=== PATIENT | male | born 1980 | race Caucasian/White ===

== ENCOUNTER 2018-05-18 19:25 | Observation (INO) | payer MEDICARE, OTHER ==
[2018-05-18] MEDS ORDERED: Naloxone 0.4 mg/ml Inj (Adult) ONE (19:36)
--- NOTE | 2018-05-18 19:50 | ED PDOC ---
Arrival/HPI - General Time Seen by Provider: 05/18/18 19:34 Historian: EMS, Police - History of Present Illness Narrative History of Present Illness (Text): 05/18/18 19:48 39 year old male, with unknown past medical history, presents to the Emergency Department via EMS accompanied by [employer] for possible substance overdose prior to arrival. As per EMS, patient was found on the street unconscious next to empty pipes by [employer] and was subsequently brought to the Emergency Department for evaluation. Upon arrival, patient is unconscious with pinpoint pupils. HPI and ROS limited secondary to patient's unconscious state. Time/Duration: Prior to Arrival Symptom Onset: Gradual Symptom Course: Unchanged Context: Street Past Medical History - Provider Review Nursing Documentation Reviewed: Yes Family/Social History - Physician Review Nursing Documentation Reviewed: Yes Family/Social History: No Known Family HX Allergies/Home Meds Allergies/Adverse Reactions: Allergies No Known Allergies Allergy (Verified 05/18/18 21:54) Review of Systems - Review of Systems Systems not reviewed;Unavailable: Acuity of Condition (Unconscious) Psychiatric: Other (drug overdose) Physical Exam Mental Status: Positive for: other (Unconscious) - Systems Exam Head: Present: Atraumatic, Normocephalic Pupils: Present: Pinpoint Extroacular Muscles: Present: EOMI Conjunctiva: Present: Normal Mouth: Present: Moist Mucous Membranes Respiratory/Chest: Present: Clear to Auscultation, Good Air Exchange. No: Respiratory Distress, Accessory Muscle Use Cardiovascular: Present: Regular Rate and Rhythm, Normal S1, S2. No: Murmurs Abdomen: No: Tenderness, Distention, Peritoneal Signs Back: Present: Normal Inspection Upper Extremity: Present: Normal Inspection. No: Cyanosis, Edema Lower Extremity: Present: Normal Inspection. No: Edema Neurological: Present: Other (Unconscious ) Skin: Present: Warm, Dry, Normal Color. No: Rashes Medical Decision Making ED Course and Treatment: 05/18/18 19:45 Impression: 39 year old male presents to the Emergency Department for medical evaluation of unconscious state. Differential Diagnosis included but are not limited to: Substance overdose Plan: -- Reassess and disposition Prior Visits: Notes and results from previous visits were reviewed. case arroyo for icu seen and examined pt stable for telemetry Progress Notes: 05/19/18 03:52 - EKG Interpretation EKG Interpretation (Text): 05/19/18 03:51 sinus bradycardia rate [address] s changes - Scribe Statement The provider has reviewed the documentation as recorded by the Scribe Dolly Bhatt. All medical record entries made by the Scribe were at my direction and personally dictated by me. I have reviewed the chart and agree that the record accurately reflects my personal performance of the history, physical exam, medical decision making, and the department course for this patient. I have also personally directed, reviewed, and agree with the discharge instructions and disposition. Disposition/Present on Arrival - Present on Arrival Any Indicators Present on Arrival: No - Disposition Have Diagnosis and Disposition been Completed?: Yes Diagnosis: Polysubstance abuse Disposition: HOSPITALIZED Disposition Time: 22:00 Condition: FAIR
[2018-05-18 19:52] VITALS: BMI 25.0
[2018-05-18 20:22] LABS: ACETAMINOPHEN < 10.0 ug/ml (10.0-20.0); SALICYLATE < 1 mg/dL (2.0-20.0)
[2018-05-18] MEDS ORDERED: Naloxone 0.4 mg/ml Inj (Adult) IVP STA (20:23)
[2018-05-18 20:30] LABS: URINE APPEARANCE CLEAR (CLEAR); URINE BILIRUBIN NEGATIVE (NEGATIVE); URINE BLOOD NEGATIVE (NEGATIVE); URINE COLOR YELLOW (YELLOW); URINE GLUCOSE (UA) 250 mg/dL (NEGATIVE); URINE LEUKOCYTE ESTERASE NEGATIVE Leu/uL (NEGATIVE); URINE PROTEIN NEGATIVE mg/dL (<30 mg/dL); URINE UROBILINOGEN 0.2 E.U./dL (<1 E.U./dL)
[2018-05-18 20:31] LABS: ALB/GLOB RATIO 1.4 (1.1-1.8); ALBUMIN 4.6 g/dL (3.0-4.8); ALT/SGPT 86 U/L (7-56); AST/SGOT 68 U/L (17-59); CALCIUM 9.9 mg/dL (8.4-10.5); GFR NON-AFRICAN AMERICAN > 60
[2018-05-18 20:32] LABS: BLOOD UREA NITROGEN 11 mg/dL (7-21)
[2018-05-18 20:33] LABS: BARBITURATES, UR NEGATIVE (NEGATIVE); BENZODIAZEPINES, UR NEGATIVE (NEGATIVE); OPIATES, UR POSITIVE (NEGATIVE); PHENCYCLIDINE, UR NEGATIVE (NEGATIVE)
[2018-05-18] MEDS ORDERED: Dextrose 50% SYRINGE Inj (50 ml) ONE (20:33)
[2018-05-18] MEDS ORDERED: Dextrose 50% SYRINGE Inj (50 ml) IVP STA ×3 (20:34→23:20)
[2018-05-18 20:58] LABS: BASO # 0.19 K/mm3 (0.0-2.0); BASO % 1.2 % (0.0-3.0); EOS # 0.6 (0.0-0.7); EOS % 3.9 % (1.5-5.0); GRAN # 10.07 (1.4-6.5); GRAN % 63.8 % (50.0-68.0); HEMOGLOBIN 13.4 g/dL (14.0-18.0); LYMPH # 3.6 (1.2-3.4); LYMPH % 22.6 % (22.0-35.0); MEAN CELL VOLUME 82.1 fl (80.0-105.0); MEAN CORPUSCULAR HEMOGLOBIN 28.6 pg (25.0-35.0); MEAN CORPUSCULAR HGB CONC 34.8 g/dl (31.0-37.0); MEAN PLATELET VOLUME 11.6 fl (7.0-11.0); MONO # 1.3 (0.1-0.6); MONO % 8.5 % (1.0-6.0); RBC 4.69 10^6/uL (3.5-6.1); RED CELL DISTRIBUTION WIDTH 13.6 % (11.5-14.5); WHITE BLOOD COUNT 15.8 10^3/ul (4.5-11.0)
[2018-05-18] MEDS ORDERED: Dextrose 5%/0.45% NS 1,000 ML IV SCH (21:30)
[2018-05-18] MEDS ORDERED: Potassium Chloride 10 mEq ER Tab PO STA (22:12)
[2018-05-19] MEDS ORDERED: Dextrose 5%/0.45% NS 1,000 ML IV SCH (00:41)
[2018-05-19] MEDS ORDERED: Multivitamin Therapeutic Tab PO STA (00:41)
[2018-05-19 01:20] LABS: CK MB% 2.4 % (2.5-3.0); CK-MB 14.1 ng/mL (0.0-3.6)
--- NOTE | 2018-05-19 01:39 | CP.PCM.HP ---
<Alexi Noel - Last Filed: 05/19/18 01:36> History of Present Illness - History of Present Illness History of Present Illness: Matt Noel PGY 2 - ICU Consult Note/H&P for Hospitalist Service Patient initially Isaias Mooney [id number] on presentation - Actual name: Jefferson Parr ( , : 1980) CC: Polysubstance abuse, hypoglycemia HPI: 38 year old male with past medical history of uncontrolled IDDM1, hx of previous DKA episode in 2017, HTN, polysubstance abuse who presented to [facility] ED via EMS with [employer] after being found by EMS unresponsive and unconscious next to empty crack pipes by [employer]. Patient was brought immediately to [facility] ED without intervention. In ED patient received narcan 0.8mg and amps of D50 for hypoglycemia. Patient initial presentation of altered mental status resolved and was able to communicate and particiapte in interview. Patient indicates he had limtied oral intake today and was getting food from a restaurant when he passed out. He admits to using heroin and crack cocaine throughout the evening. He does not remember how he got to [facility] ED after passing out. He denies head trauma, seizure like activity, chest pain, shortness of breath, agitation, abdominal pain, dyrsuria, nausea, vomiting, diarrhea, fever, chills. PMH: Uncontollred IDDM1, hx DKA, HTN, Diabetic Neuropathy, Polysubstance abuse PSH: Denies SOCHX: Tobacco: 1/2 PPD for 30+years, ETOH: Social, ID: Heroin(intranasal 4 bags daily), cocaine, crack cocaine, THC, denies any history of IV drug abuse - Lives in [place], [place] in home with a roomate ALL: NKDA MEDS: Novolog 25 units QHS, Novolog 25 units QAM, 70/30 insulin 35 units QHS, Lisinopril 5mg, Gabapentin, ASA 81 PMD: Dr. Salmon Present on Admission - Present on Admission Any Indicators Present on Admission: Yes History of Uncontrolled Diabetes: Yes Review of Systems - Review of Systems All systems: reviewed and no additional remarkable complaints except (as mentioned in HPI) Past Patient History - Past Social History Smoking Status: Light Smoker < 10 Cigarettes Daily Alcohol: Social Drugs: Cannabis, Cocaine, Opiates Home Situation {Lives}: Friends - PSYCHIATRIC Hx Substance Use: Yes Meds Allergies/Adverse Reactions: Allergies Allergy/AdvReac Type Severity Reaction Status Date / Time No Known Allergies Allergy Verified 05/18/18 21:54 Physical Exam - Constitutional Appears: No Acute Distress, Older Than Stated Age - Head Exam Head Exam: ATRAUMATIC, NORMAL INSPECTION, NORMOCEPHALIC - Eye Exam Eye Exam: EOMI Pupil Exam: Miosis - ENT Exam ENT Exam: Mucous Membranes Dry - Neck Exam Neck exam: Positive for: Full Rom - Respiratory Exam Respiratory Exam: Clear to Auscultation Bilateral, NORMAL BREATHING PATTERN. absent: Rales, Rhonchi, Wheezes - Cardiovascular Exam Cardiovascular Exam: REGULAR RHYTHM, +S1, +S2, Systolic Murmur - GI/Abdominal Exam GI & Abdominal Exam: Normal Bowel Sounds, Soft. absent: Firm, Guarding, Hernia, Tenderness - Extremities Exam Extremities exam: Negative for: calf tenderness, pedal edema - Back Exam Back exam: NORMAL INSPECTION. absent: CVA tenderness (L), CVA tenderness (R) - Neurological Exam Neurological exam: Alert, Oriented x3 Additional comments: motor and sensory grossly intact mild tremulous - Psychiatric Exam Psychiatric exam: Anxious Additional comments: Denies homicidal and suicidal ideation - Skin Skin Exam: Dry, Intact Results - Vital Signs Recent Vital Signs: Last Vital Signs Temp Pulse 73 05/18/18 20:52 Resp 20 05/18/18 20:52 BP 148/87 05/18/18 20:52 Pulse Ox 100 05/18/18 20:52 - Labs Result Diagrams: 05/18/18 20:05 05/18/18 20:05 Labs: Laboratory Results - last 24 hr 05/18/18 05/18/18 05/18/18 20:05 20:05 20:05 WBC 15.8 H RBC 4.69 Hgb 13.4 L Hct 38.5 L MCV 82.1 MCH 28.6 MCHC 34.8 RDW 13.6 Plt Count 293 MPV 11.6 H Gran % 63.8 Lymph % (Auto) 22.6 Thayer % (Auto) 8.5 H Eos % (Auto) 3.9 Baso % (Auto) 1.2 Gran # 10.07 H Lymph # (Auto) 3.6 H Thayer # (Auto) 1.3 H Eos # (Auto) 0.6 Baso # (Auto) 0.19 Sodium 140 Potassium 3.4 L Chloride 102 Carbon Dioxide 29 Anion Gap 12 BUN 11 Creatinine 0.9 Est GFR ( Amer) > 60 Est GFR (Non-Af Amer) > 60 POC Glucose (mg/dL) Random Glucose 20 L* Calcium 9.9 Magnesium 2.3 H Total Bilirubin 0.6 AST 68 H ALT 86 H Alkaline Phosphatase 96 Total Creatine Kinase CK-MB (CK-2) CK-MB (CK-2) % Total Protein 7.8 Albumin 4.6 Globulin 3.2 Albumin/Globulin Ratio 1.4 Urine Color Yellow Urine Appearance Clear Urine pH 6.0 Ur Specific Fisher 1.020 Urine Protein Negative Urine Glucose (UA) 250 H Urine Ketones Negative Urine Blood Negative Urine Nitrate Negative Urine Bilirubin Negative Urine Urobilinogen 0.2 Ur Leukocyte Esterase Negative Salicylates Urine Opiates Screen Urine Methadone Screen Acetaminophen Ur Barbiturates Screen Ur Phencyclidine Scrn Ur Amphetamines Screen U Benzodiazepines Scrn U Oth Cocaine Metabols U Cannabinoids Screen Alcohol, Quantitative 05/18/18 05/18/18 05/18/18 20:05 20:05 20:05 WBC RBC Hgb Hct MCV MCH MCHC RDW Plt Count MPV Gran % Lymph % (Auto) Thayer % (Auto) Eos % (Auto) Baso % (Auto) Gran # Lymph # (Auto) Thayer # (Auto) Eos # (Auto) Baso # (Auto) Sodium Potassium Chloride Carbon Dioxide Anion Gap BUN Creatinine Est GFR ( Amer) Est GFR (Non-Af Amer) POC Glucose (mg/dL) Random Glucose Calcium Magnesium Total Bilirubin AST ALT Alkaline Phosphatase Total Creatine Kinase CK-MB (CK-2) CK-MB (CK-2) % Total Protein Albumin Globulin Albumin/Globulin Ratio Urine Color Urine Appearance Urine pH Ur Specific Fisher Urine Protein Urine Glucose (UA) Urine Ketones Urine Blood Urine Nitrate Urine Bilirubin Urine Urobilinogen Ur Leukocyte Esterase Salicylates < 1 L Urine Opiates Screen Positive H Urine Methadone Screen Positive H Acetaminophen < 10.0 L Ur Barbiturates Screen Negative Ur Phencyclidine Scrn Negative Ur Amphetamines Screen Negative U Benzodiazepines Scrn Negative U Oth Cocaine Metabols Positive H U Cannabinoids Screen Negative Alcohol, Quantitative < 10 05/18/18 05/18/18 05/18/18 20:05 20:34 21:28 WBC RBC Hgb Hct MCV MCH MCHC RDW Plt Count MPV Gran % Lymph % (Auto) Thayer % (Auto) Eos % (Auto) Baso % (Auto) Gran # Lymph # (Auto) Thayer # (Auto) Eos # (Auto) Baso # (Auto) Sodium Potassium Chloride Carbon Dioxide Anion Gap BUN Creatinine Est GFR ( Amer) Est GFR (Non-Af Amer) POC Glucose (mg/dL) 224 H < 20 L* Random Glucose Calcium Magnesium Total Bilirubin AST ALT Alkaline Phosphatase Total Creatine Kinase 578 H CK-MB (CK-2) 14.1 H CK-MB (CK-2) % 2.4 L Total Protein Albumin Globulin Albumin/Globulin Ratio Urine Color Urine Appearance Urine pH Ur Specific Fisher Urine Protein Urine Glucose (UA) Urine Ketones Urine Blood Urine Nitrate Urine Bilirubin Urine Urobilinogen Ur Leukocyte Esterase Salicylates Urine Opiates Screen Urine Methadone Screen Acetaminophen Ur Barbiturates Screen Ur Phencyclidine Scrn Ur Amphetamines Screen U Benzodiazepines Scrn U Oth Cocaine Metabols U Cannabinoids Screen Alcohol, Quantitative 05/18/18 05/18/18 05/18/18 22:06 23:19 23:57 WBC RBC Hgb Hct MCV MCH MCHC RDW Plt Count MPV Gran % Lymph % (Auto) Thayer % (Auto) Eos % (Auto) Baso % (Auto) Gran # Lymph # (Auto) Thayer # (Auto) Eos # (Auto) Baso # (Auto) Sodium Potassium Chloride Carbon Dioxide Anion Gap BUN Creatinine Est GFR ( Amer) Est GFR (Non-Af Amer) POC Glucose (mg/dL) 34 L* 25 L* 67 Random Glucose Calcium Magnesium Total Bilirubin AST ALT Alkaline Phosphatase Total Creatine Kinase CK-MB (CK-2) CK-MB (CK-2) % Total Protein Albumin Globulin Albumin/Globulin Ratio Urine Color Urine Appearance Urine pH Ur Specific Fisher Urine Protein Urine Glucose (UA) Urine Ketones Urine Blood Urine Nitrate Urine Bilirubin Urine Urobilinogen Ur Leukocyte Esterase Salicylates Urine Opiates Screen Urine Methadone Screen Acetaminophen Ur Barbiturates Screen Ur Phencyclidine Scrn Ur Amphetamines Screen U Benzodiazepines Scrn U Oth Cocaine Metabols U Cannabinoids Screen Alcohol, Quantitative Assessment & Plan - Assessment and Plan (Free Text) Assessment: 38 year old male with past medical history of uncontrolled IDDM1, hx of previous DKA episode in 2017, HTN, polysubstance abuse who presented to [facility] with overdose in the setting of possibly hypoglycemic episode. Patient given narcan in ED with return to baseline mentation Plan: AMS secondary to Polysubstance abuse - UDS positive for Heroin, Cocaine, methadone - Patient with extensive history of polysubstance abuse - Given narcan 0.8mg in ED with rapid improvement - Head CT in ED with no acute findings - Neurochecks Q4H - Ativan 2mg Q4H prn agitation Hypoglycemia - Persistent hypoglycemia on admission - Patient given multiple amps D50 with improvement of bg - Patient able to tolerate food at this time, no signs of nausea, vomiting - Continue D5W in / NS @ 60mls - fingerstick Q2H IDDM - uncontrolled - History of poorly controlled IDDM - Patient reports home insulin usage and compliance - Holding insulin at this time, continue to check blood glucose - Previous HgA1c from 05/2018 is 10.2 - Maintain euglycemia HTN - Patient history of taking Lisinopril - Continue on low dose Lisinopril for renal protection - Monitor GI/DVT ppx - Pepcid - SCD Patient seen, case and plan discussed and agreed upon with attending - Date & Time Date: 05/19/18 Time: 01:40 <Nate Bang - Last Filed: 05/19/18 06:33> Results - Vital Signs Recent Vital Signs: Last Vital Signs Temp 97.5 F L 05/19/18 06:00 Pulse 65 05/19/18 06:00 Resp 20 05/19/18 06:00 BP 103/61 05/19/18 06:00 Pulse Ox 98 05/19/18 06:00 - Labs Result Diagrams: 05/18/18 20:05 05/18/18 20:05 Labs: Laboratory Results - last 24 hr 05/18/18 05/18/18 05/18/18 20:05 20:05 20:05 WBC 15.8 H RBC 4.69 Hgb 13.4 L Hct 38.5 L MCV 82.1 MCH 28.6 MCHC 34.8 RDW 13.6 Plt Count 293 MPV 11.6 H Gran % 63.8 Lymph % (Auto) 22.6 Thayer % (Auto) 8.5 H Eos % (Auto) 3.9 Baso % (Auto) 1.2 Gran # 10.07 H Lymph # (Auto) 3.6 H Thayer # (Auto) 1.3 H Eos # (Auto) 0.6 Baso # (Auto) 0.19 Sodium 140 Potassium 3.4 L Chloride 102 Carbon Dioxide 29 Anion Gap 12 BUN 11 Creatinine 0.9 Est GFR ( Amer) > 60 Est GFR (Non-Af Amer) > 60 POC Glucose (mg/dL) Random Glucose 20 L* Calcium 9.9 Phosphorus Magnesium 2.3 H Total Bilirubin 0.6 AST 68 H ALT 86 H Alkaline Phosphatase 96 Total Creatine Kinase CK-MB (CK-2) CK-MB (CK-2) % Total Protein 7.8 Albumin 4.6 Globulin 3.2 Albumin/Globulin Ratio 1.4 Urine Color Yellow Urine Appearance Clear Urine pH 6.0 Ur Specific Fisher 1.020 Urine Protein Negative Urine Glucose (UA) 250 H Urine Ketones Negative Urine Blood Negative Urine Nitrate Negative Urine Bilirubin Negative Urine Urobilinogen 0.2 Ur Leukocyte Esterase Negative Salicylates Urine Opiates Screen Urine Methadone Screen Acetaminophen Ur Barbiturates Screen Ur Phencyclidine Scrn Ur Amphetamines Screen U Benzodiazepines Scrn U Oth Cocaine Metabols U Cannabinoids Screen Alcohol, Quantitative 05/18/18 05/18/18 05/18/18 20:05 20:05 20:05 WBC RBC Hgb Hct MCV MCH MCHC RDW Plt Count MPV Gran % Lymph % (Auto) Thayer % (Auto) Eos % (Auto) Baso % (Auto) Gran # Lymph # (Auto) Thayer # (Auto) Eos # (Auto) Baso # (Auto) Sodium Potassium Chloride Carbon Dioxide Anion Gap BUN Creatinine Est GFR ( Amer) Est GFR (Non-Af Amer) POC Glucose (mg/dL) Random Glucose Calcium Phosphorus Magnesium Total Bilirubin AST ALT Alkaline Phosphatase Total Creatine Kinase CK-MB (CK-2) CK-MB (CK-2) % Total Protein Albumin Globulin Albumin/Globulin Ratio Urine Color Urine Appearance Urine pH Ur Specific Fisher Urine Protein Urine Glucose (UA) Urine Ketones Urine Blood Urine Nitrate Urine Bilirubin Urine Urobilinogen Ur Leukocyte Esterase Salicylates < 1 L Urine Opiates Screen Positive H Urine Methadone Screen Positive H Acetaminophen < 10.0 L Ur Barbiturates Screen Negative Ur Phencyclidine Scrn Negative Ur Amphetamines Screen Negative U Benzodiazepines Scrn Negative U Oth Cocaine Metabols Positive H U Cannabinoids Screen Negative Alcohol, Quantitative < 10 05/18/18 05/18/18 05/18/18 20:05 20:05 20:34 WBC RBC Hgb Hct MCV MCH MCHC RDW Plt Count MPV Gran % Lymph % (Auto) Thayer % (Auto) Eos % (Auto) Baso % (Auto) Gran # Lymph # (Auto) Thayer # (Auto) Eos # (Auto) Baso # (Auto) Sodium Potassium Chloride Carbon Dioxide Anion Gap BUN Creatinine Est GFR ( Amer) Est GFR (Non-Af Amer) POC Glucose (mg/dL) 224 H Random Glucose Calcium Phosphorus 5.5 H Magnesium Total Bilirubin AST ALT Alkaline Phosphatase Total Creatine Kinase 578 H CK-MB (CK-2) 14.1 H CK-MB (CK-2) % 2.4 L Total Protein Albumin Globulin Albumin/Globulin Ratio Urine Color Urine Appearance Urine pH Ur Specific Fisher Urine Protein Urine Glucose (UA) Urine Ketones Urine Blood Urine Nitrate Urine Bilirubin Urine Urobilinogen Ur Leukocyte Esterase Salicylates Urine Opiates Screen Urine Methadone Screen Acetaminophen Ur Barbiturates Screen Ur Phencyclidine Scrn Ur Amphetamines Screen U Benzodiazepines Scrn U Oth Cocaine Metabols U Cannabinoids Screen Alcohol, Quantitative 05/18/18 05/18/18 05/18/18 21:28 22:06 23:19 WBC RBC Hgb Hct MCV MCH MCHC RDW Plt Count MPV Gran % Lymph % (Auto) Thayer % (Auto) Eos % (Auto) Baso % (Auto) Gran # Lymph # (Auto) Thayer # (Auto) Eos # (Auto) Baso # (Auto) Sodium Potassium Chloride Carbon Dioxide Anion Gap BUN Creatinine Est GFR ( Amer) Est GFR (Non-Af Amer) POC Glucose (mg/dL) < 20 L* 34 L* 25 L* Random Glucose Calcium Phosphorus Magnesium Total Bilirubin AST ALT Alkaline Phosphatase Total Creatine Kinase CK-MB (CK-2) CK-MB (CK-2) % Total Protein Albumin Globulin Albumin/Globulin Ratio Urine Color Urine Appearance Urine pH Ur Specific Fisher Urine Protein Urine Glucose (UA) Urine Ketones Urine Blood Urine Nitrate Urine Bilirubin Urine Urobilinogen Ur Leukocyte Esterase Salicylates Urine Opiates Screen Urine Methadone Screen Acetaminophen Ur Barbiturates Screen Ur Phencyclidine Scrn Ur Amphetamines Screen U Benzodiazepines Scrn U Oth Cocaine Metabols U Cannabinoids Screen Alcohol, Quantitative 05/18/18 05/19/18 05/19/18 23:57 01:09 02:56 WBC RBC Hgb Hct MCV MCH MCHC RDW Plt Count MPV Gran % Lymph % (Auto) Thayer % (Auto) Eos % (Auto) Baso % (Auto) Gran # Lymph # (Auto) Thayer # (Auto) Eos # (Auto) Baso # (Auto) Sodium Potassium Chloride Carbon Dioxide Anion Gap BUN Creatinine Est GFR ( Amer) Est GFR (Non-Af Amer) POC Glucose (mg/dL) 67 86 92 Random Glucose Calcium Phosphorus Magnesium Total Bilirubin AST ALT Alkaline Phosphatase Total Creatine Kinase CK-MB (CK-2) CK-MB (CK-2) % Total Protein Albumin Globulin Albumin/Globulin Ratio Urine Color Urine Appearance Urine pH Ur Specific Fisher Urine Protein Urine Glucose (UA) Urine Ketones Urine Blood Urine Nitrate Urine Bilirubin Urine Urobilinogen Ur Leukocyte Esterase Salicylates Urine Opiates Screen Urine Methadone Screen Acetaminophen Ur Barbiturates Screen Ur Phencyclidine Scrn Ur Amphetamines Screen U Benzodiazepines Scrn U Oth Cocaine Metabols U Cannabinoids Screen Alcohol, Quantitative Attending/Attestation - Attestation I have personally seen and examined this patient.: Yes I have fully participated in the care of the patient.: Yes I have reviewed all pertinent clinical information: Yes Notes (Text): Patient seen and examined with the residents, agree with above Noted to be initially altered attributed to hypoglycemia, was started on D5 and given a sandwich with improvement of mentation AOx3 when seen by hospitalist team, no active complaints. Educated on cessation of polysubstance abuse. Will continue with D5 fluids until blood sugars stable, hold hypoglycemic treatment for DM for now.
[2018-05-19 06:07] VITALS: O2SAT 98
[2018-05-19] MEDS ORDERED: Multivitamin With Minerals Tab PO SCH (08:00)
--- NOTE | 2018-05-19 08:32 | CT ---
Date of service: 05/18/2018 PROCEDURE: CT HEAD WITHOUT CONTRAST. HISTORY: ams COMPARISON: None available. TECHNIQUE: Axial computed tomography images were obtained through the head/brain without intravenous contrast. Supplemental Coronal and Sagittal projections created and reviewed. Radiation dose: Total exam DLP = 898.40 mGy-cm. This CT exam was performed using one or more of the following dose reduction techniques: Automated exposure control, adjustment of the mA and/or kV according to patient size, and/or use of iterative reconstruction technique. FINDINGS: HEMORRHAGE: No intracranial hemorrhage. BRAIN: No mass effect or edema. No atrophy or chronic microvascular ischemic changes. VENTRICLES: Unremarkable. No hydrocephalus. CALVARIUM: Unremarkable. PARANASAL SINUSES: Unremarkable as visualized. No significant inflammatory changes. MASTOID AIR CELLS: Unremarkable as visualized. No inflammatory changes. OTHER FINDINGS: Physiological basal ganglia calcifications bilaterally common normal variant IMPRESSION: No acute intracranial abnormalities. No significant findings to account for the clinical presentation. Concordant results (preliminary interpretation) provided by [employer]. Procedure Completed: 23:45. Preliminary Report: Dictated and Authenticated: 23:52. Final Interpretation: 08:28. May 19, 2018
--- NOTE | 2018-05-19 08:41 | RAD ---
Date of service: 05/18/2018 HISTORY: Overdose. COMPARISON: No prior. FINDINGS: LUNGS: No active pulmonary disease. PLEURA: No significant pleural effusion identified, no pneumothorax apparent. CARDIOVASCULAR: Normal. OSSEOUS STRUCTURES: No significant abnormalities. VISUALIZED UPPER ABDOMEN: Normal. OTHER FINDINGS: None. IMPRESSION: No active disease.
[2018-05-19 10:42] LABS: BASO # 0.1 K/mm3 (0.0-2.0); BASO % 1.5 % (0.0-3.0); EOS # 0.3 (0.0-0.7); EOS % 4.8 % (1.5-5.0); GRAN # 4.09 (1.4-6.5); HEMOGLOBIN 12.4 g/dL (14.0-18.0); LYMPH # 1.3 (1.2-3.4); LYMPH % 19.7 % (22.0-35.0); MEAN CORPUSCULAR HEMOGLOBIN 28.2 pg (25.0-35.0); MEAN CORPUSCULAR HGB CONC 34.3 g/dl (31.0-37.0); MEAN PLATELET VOLUME 10.3 fl (7.0-11.0); MONO # 0.8 (0.1-0.6); RBC 4.4 10^6/uL (3.5-6.1); RED CELL DISTRIBUTION WIDTH 13.6 % (11.5-14.5); WHITE BLOOD COUNT 6.6 10^3/ul (4.5-11.0)
--- NOTE | 2018-05-19 10:42 | CARD ---
APPROVED REPORT Date of service: 05/18/2018 EKG Measurement Heart [id number] <Conclusion> Sinus bradycardia with marked sinus arrhythmia Incomplete right bundle branch block. LVH. Borderline ECG
[2018-05-19 10:53] LABS: ALB/GLOB RATIO 1.3 (1.1-1.8); ALBUMIN 3.5 g/dL (3.0-4.8); ALT/SGPT 71 U/L (7-56); AST/SGOT 52 U/L (17-59); BLOOD UREA NITROGEN 11 mg/dL (7-21); CALCIUM 8.9 mg/dL (8.4-10.5); GFR NON-AFRICAN AMERICAN > 60
[2018-05-19 12:09] VITALS: RESP 18
--- NOTE | 2018-05-19 15:01 | CP.PCM.DIS ---
<Herb Ortiz - Last Filed: 05/19/18 14:57> Provider - Provider Date of Admission: 05/19/18 00:42 Attending physician: Kingsley Kauffman MD Time Spent in preparation of Discharge (in minutes): 45 Diagnosis - Discharge Diagnosis (1) Hypoglycemia Status: Acute Hospital Course - Lab Results Lab Results: Most Recent Lab Values WBC 6.6 10^3/ul (4.5-11.0) D 05/19/18 10:30 RBC 4.40 10^6/uL (3.5-6.1) 05/19/18 10:30 Hgb 12.4 g/dL (14.0-18.0) L 05/19/18 10:30 Hct 36.1 % (42.0-52.0) L 05/19/18 10:30 MCV 82.0 fl (80.0-105.0) 05/19/18 10:30 MCH 28.2 pg (25.0-35.0) 05/19/18 10:30 MCHC 34.3 g/dl (31.0-37.0) 05/19/18 10:30 RDW 13.6 % (11.5-14.5) 05/19/18 10:30 Plt Count 208 10^3/uL (120.0-450.0) 05/19/18 10:30 MPV 10.3 fl (7.0-11.0) 05/19/18 10:30 Gran % 62.0 % (50.0-68.0) 05/19/18 10:30 Lymph % (Auto) 19.7 % (22.0-35.0) L 05/19/18 10:30 [place] % (Auto) 12.0 % (1.0-6.0) H 05/19/18 10:30 Eos % (Auto) 4.8 % (1.5-5.0) 05/19/18 10:30 Baso % (Auto) 1.5 % (0.0-3.0) 05/19/18 10:30 Gran # 4.09 (1.4-6.5) 05/19/18 10:30 Lymph # (Auto) 1.3 (1.2-3.4) 05/19/18 10:30 [place] # (Auto) 0.8 (0.1-0.6) H 05/19/18 10:30 Eos # (Auto) 0.3 (0.0-0.7) 05/19/18 10:30 Baso # (Auto) 0.10 K/mm3 (0.0-2.0) 05/19/18 10:30 Sodium 134 mmol/L (132-148) 05/19/18 10:30 Potassium 4.4 mmol/L (3.6-5.0) 05/19/18 10:30 Chloride 101 mmol/L (98-107) 05/19/18 10:30 Carbon Dioxide 29 mmol/L (21-33) 05/19/18 10:30 Anion Gap 8 (10-20) L 05/19/18 10:30 BUN 11 mg/dL (7-21) 05/19/18 10:30 Creatinine 0.8 mg/dl (0.8-1.5) 05/19/18 10:30 Est GFR ( Amer) > 60 05/19/18 10:30 Est GFR (Non-Af Amer) > 60 05/19/18 10:30 POC Glucose (mg/dL) 190 mg/dL (65-110) H 05/19/18 11:50 Random Glucose 157 mg/dL (70-110) H 05/19/18 10:30 Calcium 8.9 mg/dL (8.4-10.5) 05/19/18 10:30 Phosphorus 5.5 mg/dL (2.5-4.5) H 05/18/18 20:05 Magnesium 2.3 mg/dL (1.7-2.2) H 05/18/18 20:05 Total Bilirubin 0.4 mg/dL (0.2-1.3) 05/19/18 10:30 AST 52 U/L (17-59) 05/19/18 10:30 ALT 71 U/L (7-56) H 05/19/18 10:30 Alkaline Phosphatase 83 U/L (38-126) 05/19/18 10:30 Total Creatine Kinase 578 U/L (35-230) H 05/18/18 20:05 CK-MB (CK-2) 14.1 ng/mL (0.0-3.6) H 05/18/18 20:05 CK-MB (CK-2) % 2.4 % (2.5-3.0) L 05/18/18 20:05 Total Protein 6.2 g/dL (5.8-8.3) 05/19/18 10:30 Albumin 3.5 g/dL (3.0-4.8) 05/19/18 10:30 Globulin 2.7 gm/dL 05/19/18 10:30 Albumin/Globulin Ratio 1.3 (1.1-1.8) 05/19/18 10:30 Urine Color Yellow (YELLOW) 05/18/18 20:05 Urine Appearance Clear (CLEAR) 05/18/18 20:05 Urine pH 6.0 (4.7-8.0) 05/18/18 20:05 Ur Specific [place] 1.020 (1.005-1.035) 05/18/18 20:05 Urine Protein Negative mg/dL (<30 mg/dL) 05/18/18 20:05 Urine Glucose (UA) 250 mg/dL (NEGATIVE) H 05/18/18 20:05 Urine Ketones Negative mg/dL (NEGATIVE) 05/18/18 20:05 Urine Blood Negative (NEGATIVE) 05/18/18 20:05 Urine Nitrate Negative (NEGATIVE) 05/18/18 20:05 Urine Bilirubin Negative (NEGATIVE) 05/18/18 20:05 Urine Urobilinogen 0.2 E.U./dL (<1 E.U./dL) 05/18/18 20:05 Ur Leukocyte Esterase Negative Jeovanny/uL (NEGATIVE) 05/18/18 20:05 Salicylates < 1 mg/dL (2.0-20.0) L 05/18/18 20:05 Urine Opiates Screen Positive (NEGATIVE) H 05/18/18 20:05 Urine Methadone Screen Positive (NEGATIVE) H 05/18/18 20:05 Acetaminophen < 10.0 ug/ml (10.0-20.0) L 05/18/18 20:05 Ur Barbiturates Screen Negative (NEGATIVE) 05/18/18 20:05 Ur Phencyclidine Scrn Negative (NEGATIVE) 05/18/18 20:05 Ur Amphetamines Screen Negative (NEGATIVE) 05/18/18 20:05 U Benzodiazepines Scrn Negative (NEGATIVE) 10/09/18 20:05 U Oth Cocaine Metabols Positive (NEGATIVE) H 05/18/18 20:05 U Cannabinoids Screen Negative (NEGATIVE) 05/18/18 20:05 Alcohol, Quantitative < 10 mg/dL (0-10) 05/18/18 20:05 - Hospital Course Hospital Course: Upon Admission Patient is a 38 year old male with past medical history of uncontrolled IDDM1, hx of previous DKA episode in 2017, HTN, polysubstance abuse who presented to [facility] via EMS with [facility] after being found by EMS unresponsive and unconscious next to empty crack pipes by [employer]. Patient was brought immediately to [facility] without intervention. In ED patient received narcan 0.8mg and amps of D50 for hypoglycemia. Patient initial presentation of altered mental status resolved and was able to communicate and particiapte in interview. Patient indicates he had limtied oral intake today and was getting food from a restaurant when he passed out. He admits to using heroin and crack cocaine throughout the evening. He does not remember how he got to [facility] after passing out. He denies head trauma, seizure like activity, chest pain, shortness of breath, agitation, abdominal pain, dyrsuria, nausea, vomiting, diarrhea, fever, chills. Hospital Course Patient is a 38 year old male was admitted for hypoglycemia and drug overdose (crack cocaine, heroin). Chest X-ray was negative for any acute disease. EKG in the ED showed sinus bradycardia with marked sinus arrhythmia, LVH. Head CT revealed no acute intracranial abnormalities. Patient blood glucose improved with D50 administration and his vitals were stable. He was able to tolerate regular diet. Patient returned to his baseline mentation, was AAOX3 and easily arousable. Patient was able to walk in his room without any complaints and mantained good balance. He was educated on diabetic management and polysubstance abuse. Patient denied any other acute complaints. Discharge Instructions Pt is to be discharged to home as per Dr. Kauffman. Pt is to f/u with Dr. Salmon within 3-5 days of D/C from ambulatory clinic. Pt is to return to the hospital if sxs recur or worsen. Pt is to resume all home medications as prescribed and instructed in discharge instructions. All medications were discussed and are understood by patient. Pt understands plan as above and agrees. Discharge Exam - Head Exam Head Exam: ATRAUMATIC, NORMAL INSPECTION, NORMOCEPHALIC - Eye Exam Eye Exam: EOMI, Normal appearance. absent: Nystagmus, Scleral icterus - Respiratory Exam Respiratory Exam: NORMAL BREATHING PATTERN. absent: Rhonchi, Wheezes, Respiratory Distress - Cardiovascular Exam Cardiovascular Exam: REGULAR RHYTHM, +S1, +S2 - GI/Abdominal Exam GI & Abdominal Exam: Normal Bowel Sounds. absent: Distended, Firm, Rebound, Rigid, Tenderness - Extremities Exam Extremities exam: normal inspection - Neurological Exam Neurological exam: Alert, Oriented x3 - Psychiatric Exam Psychiatric exam: Normal Affect, Normal Mood - Skin Skin Exam: Intact, Normal Color Discharge Plan - Follow Up Plan Condition: FAIR Disposition: HOME/ ROUTINE Instructions: Low Blood Sugar, Adult (DC), Diabetes Diet , Low Blood Sugar in People With Diabetes, Polysubstance Abuse (DC) Additional Instructions: 1. Patient is stable for discharge to home as per Dr. Kauffman 2. Patient is to follow up with primary medical doctor Dr. Lawson withing 3-5 days of discharge from hospital. 3. Patient is told to take his 70/30 lantus twice a day instead of three times a day. Patient was educated on symptoms of hypoglycemia. 4. Patient is educated to stop using recreational drugs especially in the setting of Diabetes Me[place]ut. Patient was educated by diabetes therapeutic assistant for further management of his diabetes. Patient states that he will go back to his outpatient rehab program to stop using. 5. Patient is educated to return to hospital if symptoms recur or worsen. 6. Patient understands the plan as above and agrees. <Kingsley Kauffman - Last Filed: 05/19/18 16:33> Provider - Provider Date of Admission: 05/19/18 00:42 Attending physician: Kingsley Kauffman MD Hospital Course - Lab Results Lab Results: Most Recent Lab Values WBC 6.6 10^3/ul (4.5-11.0) D 05/19/18 10:30 RBC 4.40 10^6/uL (3.5-6.1) 05/19/18 10:30 Hgb 12.4 g/dL (14.0-18.0) L 05/19/18 10:30 Hct 36.1 % (42.0-52.0) L 05/19/18 10:30 MCV 82.0 fl (80.0-105.0) 05/19/18 10:30 MCH 28.2 pg (25.0-35.0) 05/19/18 10:30 MCHC 34.3 g/dl (31.0-37.0) 05/19/18 10:30 RDW 13.6 % (11.5-14.5) 05/19/18 10:30 Plt Count 208 10^3/uL (120.0-450.0) 05/19/18 10:30 MPV 10.3 fl (7.0-11.0) 05/19/18 10:30 Gran % 62.0 % (50.0-68.0) 05/19/18 10:30 Lymph % (Auto) 19.7 % (22.0-35.0) L 05/19/18 10:30 [place] % (Auto) 12.0 % (1.0-6.0) H 05/19/18 10:30 Eos % (Auto) 4.8 % (1.5-5.0) 05/19/18 10:30 Baso % (Auto) 1.5 % (0.0-3.0) 05/19/18 10:30 Gran # 4.09 (1.4-6.5) 05/19/18 10:30 Lymph # (Auto) 1.3 (1.2-3.4) 05/19/18 10:30 [place] # (Auto) 0.8 (0.1-0.6) H 05/19/18 10:30 Eos # (Auto) 0.3 (0.0-0.7) 05/19/18 10:30 Baso # (Auto) 0.10 K/mm3 (0.0-2.0) 05/19/18 10:30 Sodium 134 mmol/L (132-148) 05/19/18 10:30 Potassium 4.4 mmol/L (3.6-5.0) 05/19/18 10:30 Chloride 101 mmol/L (98-107) 05/19/18 10:30 Carbon Dioxide 29 mmol/L (21-33) 05/19/18 10:30 Anion Gap 8 (10-20) L 05/19/18 10:30 BUN 11 mg/dL (7-21) 05/19/18 10:30 Creatinine 0.8 mg/dl (0.8-1.5) 05/19/18 10:30 Est GFR ( Amer) > 60 05/19/18 10:30 Est GFR (Non-Af Amer) > 60 05/19/18 10:30 POC Glucose (mg/dL) 190 mg/dL (65-110) H 05/19/18 11:50 Random Glucose 157 mg/dL (70-110) H 05/19/18 10:30 Calcium 8.9 mg/dL (8.4-10.5) 05/19/18 10:30 Phosphorus 5.5 mg/dL (2.5-4.5) H 05/18/18 20:05 Magnesium 2.3 mg/dL (1.7-2.2) H 05/18/18 20:05 Total Bilirubin 0.4 mg/dL (0.2-1.3) 05/19/18 10:30 AST 52 U/L (17-59) 05/19/18 10:30 ALT 71 U/L (7-56) H 05/19/18 10:30 Alkaline Phosphatase 83 U/L (38-126) 05/19/18 10:30 Total Creatine Kinase 578 U/L (35-230) H 05/18/18 20:05 CK-MB (CK-2) 14.1 ng/mL (0.0-3.6) H 05/18/18 20:05 CK-MB (CK-2) % 2.4 % (2.5-3.0) L 05/18/18 20:05 Total Protein 6.2 g/dL (5.8-8.3) 05/19/18 10:30 Albumin 3.5 g/dL (3.0-4.8) 05/19/18 10:30 Globulin 2.7 gm/dL 05/19/18 10:30 Albumin/Globulin Ratio 1.3 (1.1-1.8) 05/19/18 10:30 Urine Color Yellow (YELLOW) 05/18/18 20:05 Urine Appearance Clear (CLEAR) 05/18/18 20:05 Urine pH 6.0 (4.7-8.0) 05/18/18 20:05 Ur Specific [place] 1.020 (1.005-1.035) 05/18/18 20:05 Urine Protein Negative mg/dL (<30 mg/dL) 05/18/18 20:05 Urine Glucose (UA) 250 mg/dL (NEGATIVE) H 05/18/18 20:05 Urine Ketones Negative mg/dL (NEGATIVE) 05/18/18 20:05 Urine Blood Negative (NEGATIVE) 05/18/18 20:05 Urine Nitrate Negative (NEGATIVE) 05/18/18 20:05 Urine Bilirubin Negative (NEGATIVE) 05/18/18 20:05 Urine Urobilinogen 0.2 E.U./dL (<1 E.U./dL) 05/18/18 20:05 Ur Leukocyte Esterase Negative [place]ov[place]/uL (NEGATIVE) 05/18/18 20:05 Salicylates < 1 mg/dL (2.0-20.0) L 05/18/18 20:05 Urine Opiates Screen Positive (NEGATIVE) H 05/18/18 20:05 Urine Methadone Screen Positive (NEGATIVE) H 05/18/18 20:05 Acetaminophen < 10.0 ug/ml (10.0-20.0) L 05/18/18 20:05 Ur Barbiturates Screen Negative (NEGATIVE) 05/18/18 20:05 Ur Phencyclidine Scrn Negative (NEGATIVE) 05/18/18 20:05 Ur Amphetamines Screen Negative (NEGATIVE) 05/18/18 20:05 U Benzodiazepines Scrn Negative (NEGATIVE) 05/18/18 20:05 U Oth Cocaine Metabols Positive (NEGATIVE) H 05/18/18 20:05 U Cannabinoids Screen Negative (NEGATIVE) 05/18/18 20:05 Alcohol, Quantitative < 10 mg/dL (0-10) 05/18/18 20:05 Attending/Attestation - Attestation I have personally seen and examined this patient.: Yes I have fully participated in the care of the patient.: Yes I have reviewed all pertinent clinical information, including history, physical exam and plan: Yes Notes (Text): 05/19/18 16:29 38 year old male with past medical history of diabetes, hypertension and substance abuse presented with altered mental status secondary to drug overdose and hypoglycemia. UTox was positive for heroin, cocaine and methadone. Initial fingerstick was 25. Patient responded to narcan and D50. His fingersticks were monitored overnight to following day. His mental status has resolved to baseline. He acknowledges symptoms were likely secondary to substance abuse and hypoglycemic episode. He was counselled on risks of continued substance abuse. He was counselled on checking fingersticks and not skipping meals. He was also counselled by the confectionery maker. Kingsley Kauffman MD Hospitalist.
[2018-05-19 17:32] VITALS: BP 120/78; PULSE 68; TEMP 97.6
== END 2018-05-19 19:01 | disposition home or self-care (01) ==
LOC: ED 19:25 → ERH 05-19 00:42 → 2RNO 05-19 03:19
PROVIDERS: ADMIT Hospitalist; ATTEND Internal Medicine
DX: E11.649 Type 2 diabetes mellitus with hypoglycemia without coma (principal); T40.5X1A Poisoning by cocaine, accidental (unintentional), initial encounter; T40.1X1A Poisoning by heroin, accidental (unintentional), initial encounter; R41.82 Altered mental status, unspecified; F14.10 Cocaine abuse, uncomplicated; F11.10 Opioid abuse, uncomplicated; I10 Essential (primary) hypertension; E11.40 Type 2 diabetes mellitus with diabetic neuropathy, unspecified